=== PATIENT | female | born 1995 | race African-American/Black ===

== ENCOUNTER 2017-09-01 16:25 | Emergency (ER) | payer BC ==
[~2017-09-01] VITALS: Ht 166.4 cm; Wt 68.8 kg
[~2017-09-01 16:25] MED LIST: ALBUAER19 INH; MULTCHW PO; NORE1DIS7 TD
[2017-09-01 16:30] VITALS: BP 129/81; PULSE 88; TEMP 37; Ht 166.4 cm; Wt 68.8 kg
[2017-09-01 16:32] VITALS: O2SAT 100
--- NOTE | 2017-09-01 17:29 | EMERGENCY ROOM VISIT NOTE ---
History First contact with patient: 16:36 Chief Complaint: HEAD INJURY (MINOR) Stated Complaint: CONCUSSION LIKE SX- HEAD INJURY History of Present Illness The patient is a 22 year old female who presents to the Emergency Room with complaints of a closed head injury. The patient reports that she slipped on the ice and fell last night, striking the back of her head. She has had a headache which began today. She reports the headache is frontal and describes the pain as achy and radiates into her right gnosticism. She rates her discomfort 8 /10. She reports associated sensitivity to light, sensitivity to sound and sitting in class. She took Tylenol this did not help her symptoms. There was no loss of consciousness at the time of the injury. She denies any confusion, blurred vision, slurred speech, numbness or weakness. She denies any other injuries. She denies any neck pain. Review of Systems A complete 10 point review of systems was reviewed with the patient with pertinent positives and negatives as per history of present illness. All else were negative. Past Medical/Surgical History Medical Problems: (1) Asthma (2) Pneumonia Surgical Problems: (1) History of oral surgery Family History Cancer Diabetes mellitus Heart disease Hypertension Lung disease Social History Smoking Status: Never Smoker Alcohol Use: occasionally Drug Use: none Marital Status: single Housing Status: lives with family Occupation Status: [employer] student Current/Historical Medications Scheduled Norelgestromin-Ethinyl Estradi (Xulane 150-35 Mcg/24Hr), 1 PATCH TD WK Physical Exam Vital Signs Date Time Temp Pulse Resp B/P (MAP) Pulse Ox O2 Delivery O2 Flow Rate FiO2 09/01/17 16:32 18 100 09/01/17 16:30 37.0 88 18 129/81 100 Room Air Physical Exam VITALS: Vitals are noted on the nurse's note and reviewed by myself. Vital signs stable. GENERAL: This is a 22-year-old female, in no acute distress, nondiaphoretic, well-developed well-nourished. SKIN: The skin was without rashes, erythema, edema, or bruising. HEAD: Normocephalic atraumatic. EARS: External auditory canals clear, tympanic membranes pearly cantu without erythema or effusion bilaterally. No hemotympanum. EYES: Pupils equal round and reactive to light and accommodation. Extraocular movements intact. MOUTH: Mucous membranes moist. NECK: Supple without nuchal rigidity. Cervical spine is nontender. HEART: Regular rate and rhythm without murmurs gallops or rubs. LUNGS: Clear to auscultation bilaterally without wheezes, rales or rhonchi. MUSCULOSKELETAL: Strength 5/5 throughout. NEURO: Patient was alert and oriented to person place and time. Normal sensation to light and sharp touch. Deep tendon reflexes 2+ throughout. No focal neurological deficits. Medical Decision & Procedures Medical Decision Differential diagnosis includes concussion, subarachnoid hemorrhage, subdural hematoma, epidural hematoma, skull fracture, neck trauma, among others. The patient was evaluated as above. She is well-appearing. Neurological exam is normal. There are no worrisome symptoms which would suggest a more serious head injury. I discussed risks/benefits of CT scan versus observation with symptomatic treatment and the patient prefers not to have a CT at this time. Customary head injury precautions were reviewed with the patient. She will follow-up with [facility] as needed. She verbalized understanding of my assessment and treatment plan and was discharged home in good condition. Head Trauma GCS Score: 15 Medication Reconcilliation Current Medication List: was personally reviewed by me Blood Pressure Screening Patient's blood pressure: Normal blood pressure Impression Primary Impression: Concussion Departure Information Dispostion Home / Self-Care Condition GOOD Referrals No Doctor, Assigned (PCP) Patient Instructions Concussion, My [facility] Additional Instructions You have been treated in the Emergency Department for a Closed Head Injury. You may follow-up with the concussion clinic if you have persistent symptoms. They are located at [address] [place] [address], [address]. You may call them to schedule an appointment at [phone]. There are open Thursday to Thursday from 8 :30 AM to 5:00 PM. For pain control, you can use the following csdg-gab-tkkqetu medicines (if >12 yo): - Regular strength (325mg/tab) Tylenol (acetaminophen) 2 tabs every 4-6 hours as needed. Do not exceed 12 tablets in a 24 hour period. Avoid taking more than 4 grams (4000 mg) of Tylenol per day. This includes any other sources of acetaminophen you may take on a regular basis. - Regular strength (200 mg/tab) Advil (ibuprofen) 1-2 tabs every 4-6 hours as needed. Do not exceed a dose of 3200 mg per day. You should relax in a quiet, dark place for the rest of the day. Avoid any possible triggers including: cigarette smoke, caffeine, nicotine, chocolate, wine, beer, loud noises or music, or bright lights. You should schedule a follow-up appointment in 2-3 days with your Primary Care Provider or established Neurologist for further evaluation and treatment of your Headache. Limit athletic activity until your symptoms have improved. Return to the Emergency Department if your current symptoms worsen despite treatment course outlined above, or if you develop any of the following symptoms : intractable pain despite aforementioned treatment course, visual disturbances , loss of vision, unilateral weakness or facial drooping, slurring of speech, loss of coordination, or loss of consciousness. Problem Qualifiers Primary Impression: Concussion Encounter type: initial encounter Loss of consciousness presence/duration: without LOC Qualified Codes: S06.0X0A - Concussion without loss of consciousness, initial encounter
== END 2017-09-01 17:38 | disposition home or self-care (01) ==
LOC: C.EDB 16:27 → C.EDD 17:38
DX: S06.0X0A Concussion without loss of consciousness, initial encounter (principal); W00.9XXA Unspecified fall due to ice and snow, initial encounter; R40.2412 Glasgow coma scale score 13-15, at arrival to emergency department; J45.909 Unspecified asthma, uncomplicated; Z79.3 Long term (current) use of hormonal contraceptives; Z83.3 Family history of diabetes mellitus; Z82.49 Family history of ischemic heart disease and other diseases of the circulatory system; Z83.6 Family history of other diseases of the respiratory system

== ENCOUNTER 2017-09-07 10:43 | Emergency (ER) | payer BC, OTHER ==
[~2017-09-07] VITALS: Ht 167.6 cm; Wt 69.1 kg
[~2017-09-07 10:43] MED LIST changes: -ALBUAER19 INH; -MULTCHW PO
[2017-09-07 10:52] VITALS: TEMP 37.4; Ht 167.6 cm; Wt 69.1 kg
--- NOTE | 2017-09-07 11:40 | DIAGNOSTIC IMAGING REPORT ---
CT OF THE HEAD WITHOUT CONTRAST CLINICAL HISTORY: Persistent/worsening concussion symptoms. COMPARISON STUDY: No previous studies for comparison. CT DOSE: 537.48 mGy.cm TECHNIQUE: Helical axial images of the head were obtained without IV contrast. Automated exposure control was utilized for the study. A dose lowering technique was utilized adhering to the principles of ALARA. FINDINGS: No acute intracranial hemorrhage, midline shift or mass effect is present. Ventricular system is normal. Basilar cisterns are patent. No extra axial collections are present. Howard-white differentiation is maintained. There is no calvarial fracture. Visualized portions of the sinuses and the mastoid air cells are clear. IMPRESSION: 1. No acute intracranial findings. 2. No calvarial fracture. Electronically signed by: Kolby Rahman M.D. 09/07/2017 11:38 AM Dictated Date/Time: 09/07/2017 11:35 AM
[2017-09-07 12:04] VITALS: BP 115/70; PULSE 90; O2SAT 100
--- NOTE | 2017-09-07 15:57 | EMERGENCY ROOM VISIT NOTE ---
History First contact with patient: 10:56 Chief Complaint: HEAD INJURY (MINOR) Stated Complaint: POST-CONCUSSION History of Present Illness The patient is a 22 year old female who presents to the Emergency Room with complaints of persistent and worsening headache, nausea, fatigue, disorientation , memory problems and confusion. The patient reports that she fell last Thursday after slipping on ice, and hitting the back of her head. She was here in the emergency department for evaluation, and elected conservative management. The patient reports that she did go to work yesterday afternoon and evening, and had to come home early because of worsening headache, nausea and other symptoms. When she awoke this morning, she thought it was a different day. She got up to [place] to go to work, and realized that she had lysis scheduled for today. She also did not know what bus she needed to catch to go to a certain part of [place]. The patient reports that she did have significant nausea at work yesterday, but the nausea significantly improved today. She does have an appointment scheduled for tomorrow at [facility] , but was instructed to come to the emergency department if her symptoms persist or worsen. The patient currently rates her headache a 4 out of 10. She did take Tylenol PM last evening to help her sleep. The patient has had a prior history of multiple concussions. She denies any prior history of head CTs. The patient also reports that she has had a runny nose and mild sinus congestion for the past 24-48 hours. She denies any significant cough or sore throat. She denies any fevers or chills. Review of Systems 10 system review was performed and was negative except for pertinent positives and negatives as indicated in history of present illness Past Medical/Surgical History Medical Problems: (1) Asthma (2) History of multiple concussions (3) Pneumonia Surgical Problems: (1) History of oral surgery Family History Cancer Diabetes mellitus Heart disease Hypertension Lung disease Social History Smoking Status: Never Smoker Alcohol Use: occasionally Drug Use: none Marital Status: single Housing Status: lives with family Occupation Status: [employer] [place] [employer] Current/Historical Medications Scheduled Norelgestromin-Ethinyl Estradi (Xulane 150-35 Mcg/24Hr), 1 PATCH TD WK Physical Exam Vital Signs Date Time Temp Pulse Resp B/P (MAP) Pulse Ox O2 Delivery O2 Flow Rate FiO2 09/07/17 12:04 90 18 115/70 100 1/22/18 10:55 16 100 09/07/17 10:52 37.4 96 16 117/72 100 Room Air Physical Exam CONSTITUTIONAL: Healthy and well nourished. Alert and oriented X 3 with positive affect. GCS 15. HEENT: Normocephalic, atraumatic. Pupils equal, round and reactive. No scalp ecchymosis, edema or hematoma formation. No subconjunctival hemorrhage, epistaxis, hemotympanum, raccoon's eyes or Woods sign. No tenderness to palpation or percussion of the frontal or maxillary sinuses. No rhinorrhea. Mild posterior pharyngeal erythema is noted. NECK: Full active range of motion without discomfort. LYMPHATICS: No cervical chain adenopathy noted. RESPIRATORY: Clear to auscultation bilaterally with no wheezing, crackles, rhonchi or stridor. CARDIOVASCULAR: Regular rate and rhythm with no murmurs, rubs or gallops. GASTROINTESTINAL: Bowel sounds present in all quadrants. Soft and nontender to palpation. MUSCULOSKELETAL: Full range of motion of all joints without discomfort. INTEGUMENTARY: No rash or other significant dermatologic conditions noted. NEUROLOGIC: Cranial nerves II-XII grossly intact. No focal neurologic deficits noted. No ataxia with ambulation. Normal finger to nose test. Negative pronator drift. Normal fast alternating hand movements. Medical Decision & Procedures ER Provider Diagnostic Interpretation: Noncontrast CT of the head does not show any acute fracture or intracranial bleed. Radiologist report is as follows: CT OF THE HEAD WITHOUT CONTRAST CLINICAL HISTORY: Persistent/worsening concussion symptoms. COMPARISON STUDY: No previous studies for comparison. CT DOSE: 537.48 mGy.cm TECHNIQUE: Helical axial images of the head were obtained without IV contrast. Automated exposure control was utilized for the study. A dose lowering technique was utilized adhering to the principles of ALARA. FINDINGS: No acute intracranial hemorrhage, midline shift or mass effect is present. Ventricular system is normal. Basilar cisterns are patent. No extra axial collections are present. Howard-white differentiation is maintained. There is no calvarial fracture. Visualized portions of the sinuses and the mastoid air cells are clear. IMPRESSION: 1. No acute intracranial findings. 2. No calvarial fracture. ED Course Patient history and physical exam were performed. Nurse's notes were reviewed. Vital signs were reviewed and normal. I did discuss CT imaging with the patient, including wrist of radiation exposure. Given that the patient's symptoms have been persistent and worsened, although it is from increased activities at work yesterday that worsened her symptoms, I did suggest performing a head CT. The patient was in agreement. Noncontrast CT of the head was normal. The patient was provided a concussion handout. She was encouraged to take Tylenol as needed for pain. She was provided prescriptions for Ultram and Zofran ODT. She was encouraged to follow-up with [facility] for further concussion management. The patient reports that she has an appointment scheduled for tomorrow. The patient voiced understanding of all discharge instructions, refused any analgesics while in the emergency department, and rated her discomfort a 3 out of 10 at the conclusion of my exam. Medical Decision Medication Reconcilliation Current Medication List: was personally reviewed by me Blood Pressure Screening Patient's blood pressure: Normal blood pressure Impression Primary Impression: Post-concussion syndrome Departure Information Referrals No Doctor, Assigned (PCP) Patient Instructions My [facility]
== END 2017-09-07 12:05 | disposition home or self-care (01) ==
LOC: C.EDB 10:47 → C.EDD 12:05
DX: F07.81 Postconcussional syndrome (principal); J45.909 Unspecified asthma, uncomplicated; Z87.01 Personal history of pneumonia (recurrent); Z80.9 Family history of malignant neoplasm, unspecified; Z82.49 Family history of ischemic heart disease and other diseases of the circulatory system; Z83.6 Family history of other diseases of the respiratory system